=== PATIENT | female | born 1985 | race Caucasian/White ===

== ENCOUNTER 2016-04-30 11:43 | Emergency (ER) | payer OTHER, SELFPAY ==
--- NOTE | 2016-04-30 13:38 | RAD ---
PA AND LATERAL CHEST: History: Fall, chest pain. FINDINGS: The cardiac mediastinum is normal. The lungs are well expanded and clear. The bony thorax is cha l. Bilateral nipple piercings are present. IMPRESSION: Normal exam. POS: [facility]
== END 2016-04-30 13:47 | disposition home or self-care (01) ==
LOC: MADERS 11:43
DX: S13.9XXA Sprain of joints and ligaments of unspecified parts of neck, initial encounter (principal); S20.221A Contusion of right back wall of thorax, initial encounter; F32.9 Major depressive disorder, single episode, unspecified; W19.XXXA Unspecified fall, initial encounter
CPT/HCPCS: 71020; 99284